=== PATIENT | female | born 1975 | race Caucasian/White ===

== ENCOUNTER → 2020-09-15 00:34 | Outpatient (CLI) | payer BC, SELFPAY ==
[2020-09-15 18:42] LABS: SARS-CoV-2 RNA PCR Negative
== END ==
PROVIDERS: Visit Provider Urology
DX: Z01.812 Encounter for preprocedural laboratory examination (principal); Z20.822 Contact with and (suspected) exposure to COVID-19
CPT/HCPCS: C9803; U0003; U0005

== ENCOUNTER 2020-09-18 01:45 | Day surgery (SDC) | payer BC, SELFPAY ==
[2020-09-11 14:36] VITALS: BMI 29.9
--- NOTE | 2020-09-15 11:08 | PM.IMHP ---
H&P: HPI History of Present Illness Date/Time: 09/15/20 11:08 45-year-old here for treatment of her stress incontinence. She has a degree of overactive bladder as well but understands surgery will not help her overactive bladder symptoms Chief Complaint: Stress incontinence Review of Systems Review of Systems: All systems reviewed & are unremarkable except as noted in HPI and below PMFSH Family History Family History (Updated 09/15/20 @ 11:08 by Jose Alejandro Lizama MD) Other Heart disease Social History Social History Smoking status: Never smoker Alcohol intake: current Drinks per week: 1 Substance use: never Substance use type: does not use Spiritual care concerns: No Meds Home Medications and Allergies Home Medications Medication Instructions Recorded Confirmed Type escitalopram oxalate 20 mg PO DAILY 09/11/20 09/11/20 History norethindrone-e.estradiol-iron 1 tablet PO DAILY 09/11/20 09/11/20 History [Blisovi Fe 05/31 ()] valacyclovir 500 mg PO DAILY 09/11/20 09/11/20 History Allergies Allergy/AdvReac Type Severity Reaction Status Date / Time acetaminophen [From Percocet] Allergy Mild Itching Verified 09/11/20 14:34 oxycodone [From Percocet] Allergy Mild Itching Verified 09/11/20 14:34 Exam Const: General: cooperative and healthy appearing HENMT: Head: normal to inspection Eyes: General: appearance normal, both eyes and all related structures Resp: Effort & Inspection: normal respiratory effort and able to speak in complete sentences GI: Inspection: normal to inspection Skin: General skin exam: normal color Neuro: General: patient oriented x3 Assessment and Plan Assessment and plan (1) NAHUM (stress urinary incontinence, female): Code(s): N39.3 - Stress incontinence (female) (male) Status: Acute Assessment and Plan: Urethral sling
--- NOTE | 2020-09-18 07:20 | WPDHPUPDATE1 ---
History and Physical Update Update Date/Time: 09/18/20 07:20 History and Physical has been reviewed, including an updated exam of the patient. There are NO changes in the patient's condition. Risks, benefits, and alternatives have been discussed and questions answered. Patient agrees to proceed with procedure.
[2020-09-18] MEDS: LACTATED RINGERS 1,000 ML 30 ML IV CONT (09:19)
[2020-09-18 09:30] VITALS: BP 134/92; PULSE 82; RESP 18; TEMP 37.4; O2SAT 99
--- NOTE | 2020-09-18 09:50 | WPDANESEPPF ---
Anes - Initial Pre Proc Eval Procedure: Operation Date: 09/18/20 10:30 Proposed Procedures p Urethral Sling - Jose Alejandro Lizama MD Date/Time: 09/18/20 09:50 Surgeon: Jose Alejandro Lizama MD Pre Op Diagnosis: stress incontinence Patient Data Age: 45 Gender: F Height: 1.63 m Weight: 79 kg Allergies Allergy/AdvReac Type Severity Reaction Status Date / Time oxycodone [From Percocet] Allergy Mild Itching Verified 09/18/20 09:49 Home Medications Medication Instructions Recorded Confirmed Type escitalopram oxalate 20 mg PO DAILY 09/11/20 09/18/20 History norethindrone-e.estradiol-iron 1 tablet PO DAILY 09/11/20 09/18/20 History [Blisovi Fe 05/31 ()] valacyclovir 500 mg PO DAILY 09/11/20 09/18/20 History Patient hx anesthesia problems: none Family hx anesthesia problems: none [facility] Past Medical History Medical History (Updated 09/18/20 @ 09:51 by Kenny Tate DO) Anxiety Migraine Family History Family History (Updated 09/15/20 @ 11:08 by Jose Alejandro Lizama MD) Other Heart disease Social History Social History Smoking status: Never smoker Alcohol intake: current Drinks per week: 1 Substance use: never Substance use type: does not use Living arrangements: with family Spiritual care concerns: No Anes - Eval Final PreProcedure Day of Procedure 09/18/20 09:50 Patient weight: overweight Heart: regular rate and rhythm Lungs: clear to auscultation and normal air movement Airway: Mallampati scale class II Neurological: alert and oriented Last oral intake: >/= 8 hours ASA classification: II Emergent: no Anesthetic plan: proceed Anesthesia type and monitoring: general GIVS and standard monitoring Informed Consent: The patient's anesthetic plan and its attendant risks and benefits were discussed with the patient/family/POA. Questions were solicited and answers provided to the satisfaction of the patient/family/POA.
[2020-09-18] MEDS: ceFAZolin 2 GM/D5W 50 ML 2 GM/50 ML BAG IVPB (10:13)
[2020-09-18] MEDS: BUPIVACAINE/EPINEPHRINE 0.25% 50 ML VIAL 20 ML INFILTRATE (10:32)
[2020-09-18 10:43] VITALS: BP 115/67; PULSE 85; RESP 16; O2SAT 97
[2020-09-18 11:00] VITALS: BP 124/76; PULSE 71; RESP 16
[2020-09-18 11:30] VITALS: BP 110/85; PULSE 78; RESP 16
--- NOTE | 2020-09-18 11:55 | SUR.PHASEII ---
[id number]- Call to Dr. Lizama patient experiencing burning and discomfort with urinating and requesting medication prior to discharge home. Per Dr. Lizama patient can have 200MG pyridium PO once.
[2020-09-18 12:00] VITALS: BP 130/80; PULSE 85; RESP 16
[2020-09-18] MEDS: PHENAZOPYRIDINE HCL 100 MG TABLET 200 MG PO (12:01)
--- NOTE | 2020-09-21 09:00 | PM.PROC ---
Procedure Note - Detailed Date of procedure: 09/18/20 Pre-op diagnosis: stress incontinence Stress urinary incontinence Post-op diagnosis: same Procedure performed: Transobturator Mid-urethral sling Cystoscopy Description of procedure: Anesthesia: Mac local This is a patient with confirmed stress urinary incontinence. She desires correction. She understands the risks of bleeding, infection, damage to the urinary tract, lack of cure of stress incontinence, recurrence of stress incontinence, postoperative voiding dysfunction including incontinence and retention, need for ancillary procedures to loosen remove the sling, postoperative voiding dysfunction including retention and overactive bladder, hip and leg pain, dyspareunia, mesh related complications including exposure and extrusion. She agrees to proceed. She understands it will not help overactive bladder symptoms if present. She was correctly identified and informed consent obtained. She is brought to the operating room. She was given appropriate anesthesia. She was placed in the dorsal lithotomy position. All pressure points were padded. She was given appropriate perioperative antibiotics and a time-out performed. A Saha catheter is placed. I marked out the thigh incisions anesthetize the skin and made those incisions. I anesthetized the anterior vaginal wall over the mid urethra. I made a 1 cm incision. I dissected out laterally taking great care not to injure the urethra or the vaginal wall. Passed the helical trocars 1st on the left and then on the right from the thigh incision towards the vaginal incision. Sling was connected to the trocars and brought out through the thigh incision. I tensioned the sling appropriately. I cut and removed the plastic sheaths. I closed the incision with 2 0 Vicryl. I then performed cystoscopy. There was no surgical artifact or abnormalities inside the bladder. The urethra was normal without surgical artifact. I cut the excess sling material. I closed the incisions with glue. She was awakened and transferred to the PACU in stable condition. Implants: Mid urethral sling Surgeon: Jose Alejandro Lizama MD Drains: No Packing: No Pathology: none sent Complications: No immediate complications Condition: stable Disposition: PACU
== END 2020-09-18 12:12 | disposition home or self-care (01) ==
PROVIDERS: PCP Physician Assistant; Visit Provider Urology
PROC: (CPT 57288; principal; 2020-09-18 10:30)
DX: N39.3 Stress incontinence (female) (male) (principal); F41.9 Anxiety disorder, unspecified
CPT/HCPCS: 57288; A9270; C1771; C9803; J0690; J1100; J2250; J2405; J2704; J3010; J7030; J7120; U0003; U0005